=== PATIENT | male | born 1955 | race Caucasian/White ===

== ENCOUNTER 2024-11-01 19:57 | Emergency (ER) | payer MEDICARE ==
[~2024-11-01] VITALS: Ht 167.6 cm; Wt 83.1 kg
[2024-11-01 20:12] LABS: BASOPHILS 0.8 % (0.2-1.2); EOSINOPHILS 1.9 % (0.8-7.0); LYMPHOCYTES 27.1 % (21.8-53.1); MCH 33.0 PG (25.7-32.2); MCHC 34.1 g/dL (32.3-36.5); MCV 97.0 fL (79.0-92.2); MONOCYTES 12.0 % (5.3-12.2); NEUTROPHILS 57.7 % (34.0-67.9); RBC 4.27 M/uL (4.63-6.08)
[2024-11-01] MEDS ORDERED: LACTATED RINGER'S 1,000 ML IV ONE (20:15)
[2024-11-01] MEDS ORDERED: DIPHTH,PERTUSS(ACELL),TET VAC 0.5 ML SYRINGE IM ONE ×2 (20:15→21:30)
[2024-11-01] MEDS ORDERED: TRANEXAMIC ACID IN NACL,ISO-OS 1,000 MG/100 ML PIGGYBACK IV ONE (20:15)
[2024-11-01 20:23] LABS: INR 0.99 (0.80-1.30); PROTIME 12.4 Sec (11.2-14.2)
[2024-11-01 20:28] LABS: ALCOHOL, MEDICAL 215.0 ng/dL (<3); ALT (SGPT) 45.0 U/L (14-59); AST (SGOT) 32.0 U/L (15-37); GLOMERULAR FILTRATION RATE,EST 98.0 mL/min (>60); PROTEIN, TOTAL 7.0 g/dL (6.4-8.2); UREA NITROGEN 14.0 mg/dL (7-18)
[2024-11-01] MEDS ORDERED: GABAPENTIN300 MG PO (20:32)
[2024-11-01] MEDS ORDERED: PRAVASTATIN SOD80 MG PO (20:32)
[2024-11-01] MEDS ORDERED: METOPROLOL SUCC25 MG PO (20:32)
[2024-11-01] MEDS ORDERED: AMIODARONE HCL200 MG PO (20:33)
[2024-11-01] MEDS ORDERED: CITALOPRAM HBR20 MG PO (20:33)
[2024-11-01] MEDS ORDERED: SPIRONOLACTONE25 MG PO (20:33)
[2024-11-01 21:43] VITALS: BP 147/66
== END 2024-11-01 21:30 | disposition home or self-care (01) ==
LOC: ED 19:57
PROVIDERS: Family Medicine
DX: S00.83XA Contusion of other part of head, initial encounter (principal); S00.81XA Abrasion of other part of head, initial encounter; Z79.899 Other long term (current) drug therapy; W18.30XA Fall on same level, unspecified, initial encounter
CPT/HCPCS: 36415; 70450; 72125; 80053; 85025; 85610; 90471; 90715; 96361; 96374; 96375; 99284-25; G0480; J2405; J7121